=== PATIENT | female | born 1980 | race Caucasian/White ===

== ENCOUNTER 2016-11-26 11:49 | Emergency (ER) | payer BC, OTHER ==
[~2016-11-26 11:49] MED LIST: ACET50TA PO; IBUP80TA PO; VITAPRTA PO
[2016-11-26] MEDS ORDERED: ONDANSETRON 4 MG ORAL DISINTEGRATING TAB (S0181) As Ordered ONE (12:23)
--- NOTE | 2016-11-26 13:00 | REP ---
Chest x-ray: Two views. History: Cough . Comparison study: No comparison study . Findings: The lungs are well inflated and free of infiltrate. The pleural angles are sharp. The heart size is normal. Pulmonary vasculature is not increased. No significant bony abnormality is seen. Impression: Negative chest x-ray. Signed by Robbie Lock MD 11/26/2016 12:51 P
--- NOTE | 2016-11-26 13:17 | EDDOCDS ---
Nurse's Notes [facility] Name: Miguel Sheth Age: 36 yrs Sex: Female : 1980 Arrival Date: 11/26/2016 Time: 11:49 Bed I8 / 16 Private MD: NO PRIMARY PHYSICIAN, . Diagnosis: Acute upper respiratory infection, unspecified;Nausea and vomiting Presentation: 11/26 11:56 Presenting complaint: Patient states: Cough and congestion with sinus pressure for jo3 several days. Pt says that anything she drinks "comes back up" but is drinking an energy drink at the desk. Adult Sepsis Screening: Patient's respiratory rate is less than 22. Systolic blood pressure is greater than 100. Patient has a qSOFA score of 0- Negative Sepsis Screen. Suicide/Homicide risk assessment- the patient denies having any suicidal and/or homicidal ideations and does not present with any other emotional, behavioral or mental health complaints. 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 Transition of care: patient was not received from another setting of care. 11:56 Acuity: KACY Level 4 jo3 11:56 Method Of Arrival: Walkin/Carried/Asstd jo3 Triage Assessment: 11:59 General: Appears in no apparent distress, comfortable, Behavior is appropriate for age, jo3 cooperative, pleasant. HIV screening NA for this visit Offered previously. Neurological: Level of Consciousness is awake, alert, Oriented to person, place, time. Respiratory: Airway is patent Respiratory effort is even, unlabored. 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 Ventolin HFA 90 mcg/actuation Nebulizer HFAA 1 puff every 4 hours - PMHx: Asthma; - PSHx: Adenoidectomy; - Social history: Smoking status: Patient states former smoker of tobacco. No barriers to communication noted, The patient speaks fluent Kinyarwanda, Speaks appropriately for age. - Family history: Not pertinent. - : The pt / caregiver states he / she is not on anticoagulants. Home medication list is obtained from the patient. - Exposure Risk Screening:: None identified. Screenin:36 Screening information is obtained from the patient. Fall risk: No risks identified. mcp Assistance ADL's: requires no assistance with activities of daily living. Abuse/DV Screen: The patient / caregiver reports he/she is: not in a situation that causes fear, pain or injury. Nutritional screening: No deficits noted. Advance Directives: There is no active DNR order. home support is adequate. Assessment: 12:36 General: Appears in no apparent distress, Behavior is cooperative. Pain: Location: face mcp Pain currently is 4 out of 10 on a pain scale. Neurological: No deficits noted. EENT: Reports nasal congestion. Respiratory: Airway is patent Respiratory effort is even, unlabored. Derm: Skin is pink, warm & dry. 13:15 General: Tolerated fluids po. [facility] Vital Signs: 11:50 BP 131 / 78; Pulse 99; Resp 18; Temp 98.6(O); Pulse Ox 99% on R/A; Weight 77.11 kg (R); elp Height 5 ft. 3 in. (160.02 cm) (R); Pain 6/10; 13:14 BP 118 / 75; Pulse 89; Resp 18; Temp 98.7(O); Pulse Ox 99% on R/A; Pain 0/10; jml1 11:50 Body Mass Index 30.11 (77.11 kg, 160.02 cm) [facility] Vitals: 11:50 Log In Time: November 26, 2016 at 11:48. [facility] ED Course: 11:49 Patient visited by Maria Isabel Torres PCA. elp 11:49 Patient moved to Waiting elp 11:50 NO PRIMARY PHYSICIAN, . is Private Physician. elp 11:51 Patient visited by Maria Isabel Torres PCA. elp 11:51 Patient moved to Pre RCE elp 11:57 Triage Initiated jo3 12:00 Patient visited by Rosalee Owen RN. jo3 12:00 Jad Araya MD is Attending Physician. br1 12:00 Patient moved to I ck1 12:15 Patient visited by Jad Araya MD. br1 12:37 Patient visited by Silvia Luu RN. [facility] 12:37 The patient / caregiver is instructed regarding the plan of care and ED course. Patient mcp has correct armband on for positive identification. Bed in low position. Call light in reach. Adult w/ patient. 12:37 No IV's were initiated during this patient's visit. No procedures done that require mcp assistance. 12:56 Patient visited by Jad Araya MD. br1 13:05 [facility] is Referral Physician. br1 13:15 Patient visited by Dominick Pratt. robin Administered Medications: 12:34 Drug: Ondansetron ODT 4 mg [ondansetron 4 mg disintegrating tablet (1 tabs)] Route: PO; mcp Order Results: Lab Order: -Influenza A&B Rapid Antigen - Nose; SPEC'M 11/26/16 12:28 Test: INFLUENZA A RAPID SCR by ICA; Value: INFLUENZA A RESULTS NEGATIVE; Status: F Test: INFLUENZA A RAPID SCR by ICA; Value: Comments:; Status: F Test: INFLUENZA B RAPID SCR by ICA; Value: INFLUENZA B RESULTS NEGATIVE; Status: F Test Note: ; The Influenza test is a direct rapid immunoassay for the qualitative detection of Influenza viral antigen. Cell culture (Viral Culture) testing should be considered to confirm NEGATIVE results and to assist in detecting other viruses that can provide similar clinical symptoms. Please contact the lab within 24 hours ([phone]) if confirmatory testing is desired. Outcome: 13:06 Discharge ordered by Provider. br1 13:15 Discharge Assessment: patient administered narcotics - no. The following High Risk [facility] Discharge criteria are identified: None. Discharged to home ambulatory, with friend. Condition: stable. Discharge instructions given to patient, Instructed on discharge instructions, follow up and referral plans. medication usage, diet, Demonstrated understanding of instructions, medications, Pt was receptive of discharge instructions/ teaching. Prescriptions given X 1. No special radiology studies were completed. Property sent home with patient. 13:16 Patient left the ED. [facility] Signatures: Silvia Luu RN RN mcp Kim-Ashcraft, ConnieRN RN ck1 Rosalee Owen RN RN jo3 Jad Araya MD MD br1 Dominick Pratt jml1 Maria Isabel Torres, PIPELINES SUPERINTENDENT PIPELINES SUPERINTENDENT elp Corrections: (The following items were deleted from the chart) 11:58 11:56 Presenting complaint: Patient states: Cough and congestion with sinus pressure jo3 for several days jo3 11:58 11:56 Adult Sepsis Screening: Patient's respiratory rate is less than 22. Systolic jo3 blood pressure is greater than 100. Patient has a qSOFA score of 0- Negative Sepsis Screen. jo3 MTDD
--- NOTE | 2016-11-26 13:17 | EDDOCDS ---
Physician Documentation [facility] Name: Miguel Sheth Age: 36 yrs Sex: Female : 1980 Arrival Date: 11/26/2016 Time: 11:49 Bed I8 / 16 Private MD: NO PRIMARY PHYSICIAN, . Disposition: 11/26/16 13:06 Discharged to Home/Self Care. Impression: Acute upper respiratory infection, unspecified, Nausea and vomiting. - Condition is Stable. - Discharge Instructions: Nausea and Vomiting, Upper Respiratory Infection, Adult. - Prescriptions for ZOFRAN ODT 4 mg - dissolve 1 tablet by ORAL route 4 times per day As needed do not chew, do not swallow whole; 10 tablet. - Medication Reconciliation, Local Pharmacy Hours form. - [facility] up: [facility]; When: 2 - 3 days; Reason: Recheck today's complaints. - Problem is new. - Symptoms have improved. - Notes: You were seen in the ED for chills, aches, nausea, vomiting, and diarrhea concerning for viral syndrome. Strep and Flu swabs are negative. Chest Xray was clear as well. Continue Tylenol and Ibuprofen as needed for pain and fever. Encourage plenty of clear liquids (use Zofran as needed for nausea) and then advance your diet as tolerated. Call your primary doctor to arrange to be seen for recheck (if you have no doctor please call the [facility] to arrange to be seen). Return to the ED for any uncontrolled fever, abdominal pain, trouble breathing, or any other concerns. Historical: - Allergies: Sulfa (Sulfonamide Antibiotics); - Home Meds: 1. Ventolin HFA 90 mcg/actuation Nebulizer HFAA 1 puff every 4 hours - PMHx: Asthma; - PSHx: Adenoidectomy; - Social history: Smoking status: Patient states former smoker of tobacco. No barriers to communication noted, The patient speaks fluent Swedish, Speaks appropriately for age. - Family history: Not pertinent. - : The pt / caregiver states he / she is not on anticoagulants. Home medication list is obtained from the patient. - Exposure Risk Screening:: None identified. 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 3 in. (160.02 cm) (R); Pain 6/10; 13:14 BP 118 / 75; Pulse 89; Resp 18; Temp 98.7(O); Pulse Ox 99% on R/A; Pain 0/10; jml1 11:50 Body Mass Index 30.11 (77.11 kg, 160.02 cm) elp MDM: 12:16 Strep Screen, Nursing ordered. br1 12:16 Ondansetron ODT Oral Disintegrating Tablet 4 mg PO once ordered. br1 12:16 Fluid Challenge ordered. br1 12:18 -Influenza A&B Rapid Antigen - Nose Ordered. EDMS 12:18 Chest, 2 View (pa\E\lat) Ordered. EDMS 12:36 GATS (NEGATIVE STREP SCREEN) Ordered. EDMS 12:55 -Influenza A&B Rapid Antigen - Nose Reviewed. br1 Administered Medications: 12:34 Drug: Ondansetron ODT 4 mg [ondansetron 4 mg disintegrating tablet (1 tabs)] Route: PO; [facility] Signatures: Dispatcher [employer] Silvia Carrillo RN RN mcp Helmerci, Jennifer, RN RN jo3 Roggie, Brian, MD MD br1 MTDD
--- NOTE | 2016-11-28 14:17 | EDDOCDS ---
Nurse's Notes [facility] Name: Miguel Sheth Age: 36 yrs Sex: Female : 1980 Arrival Date: 11/26/2016 Time: 11:49 Bed I8 / 16 Private MD: NO PRIMARY PHYSICIAN, . Diagnosis: Acute upper respiratory infection, unspecified;Nausea and vomiting Presentation: 11/26 11:56 Presenting complaint: Patient states: Cough and congestion with sinus pressure for jo3 several days. Pt says that anything she drinks "comes back up" but is drinking an energy drink at the desk. Adult Sepsis Screening: Patient's respiratory rate is less than 22. Systolic blood pressure is greater than 100. Patient has a qSOFA score of 0- Negative Sepsis Screen. Suicide/Homicide risk assessment- the patient denies having any suicidal and/or homicidal ideations and does not present with any other emotional, behavioral or mental health complaints. 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 Transition of care: patient was not received from another setting of care. 11:56 Acuity: KACY Level 4 jo3 11:56 Method Of Arrival: Walkin/Carried/Asstd jo3 Triage Assessment: 11:59 General: Appears in no apparent distress, comfortable, Behavior is appropriate for age, jo3 cooperative, pleasant. HIV screening NA for this visit Offered previously. Neurological: Level of Consciousness is awake, alert, Oriented to person, place, time. Respiratory: Airway is patent Respiratory effort is even, unlabored. 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 Ventolin HFA 90 mcg/actuation Nebulizer HFAA 1 puff every 4 hours - PMHx: Asthma; - PSHx: Adenoidectomy; - Social history: Smoking status: Patient states former smoker of tobacco. No barriers to communication noted, The patient speaks fluent Albanian, Speaks appropriately for age. - Family history: Not pertinent. - : The pt / caregiver states he / she is not on anticoagulants. Home medication list is obtained from the patient. - Exposure Risk Screening:: None identified. Screenin:36 Screening information is obtained from the patient. Fall risk: No risks identified. mcp Assistance ADL's: requires no assistance with activities of daily living. Abuse/DV Screen: The patient / caregiver reports he/she is: not in a situation that causes fear, pain or injury. Nutritional screening: No deficits noted. Advance Directives: There is no active DNR order. home support is adequate. Assessment: 12:36 General: Appears in no apparent distress, Behavior is cooperative. Pain: Location: face mcp Pain currently is 4 out of 10 on a pain scale. Neurological: No deficits noted. EENT: Reports nasal congestion. Respiratory: Airway is patent Respiratory effort is even, unlabored. Derm: Skin is pink, warm & dry. 13:15 General: Tolerated fluids po. [facility] Vital Signs: 11:50 BP 131 / 78; Pulse 99; Resp 18; Temp 98.6(O); Pulse Ox 99% on R/A; Weight 77.11 kg (R); elp Height 5 ft. 3 in. (160.02 cm) (R); Pain 6/10; 13:14 BP 118 / 75; Pulse 89; Resp 18; Temp 98.7(O); Pulse Ox 99% on R/A; Pain 0/10; jml1 11:50 Body Mass Index 30.11 (77.11 kg, 160.02 cm) [facility] Vitals: 11:50 Log In Time: November 26, 2016 at 11:48. [facility] ED Course: 11:49 Patient visited by Maria Isabel Torres PCA. elp 11:49 Patient moved to Waiting elp 11:50 NO PRIMARY PHYSICIAN, . is Private Physician. elp 11:51 Patient visited by Maria Isabel Torres PCA. elp 11:51 Patient moved to Pre RCE elp 11:57 Triage Initiated jo3 12:00 Patient visited by Rosalee Owen RN. jo3 12:00 Jad Araya MD is Attending Physician. br1 12:00 Patient moved to I ck1 12:15 Patient visited by Jad Araya MD. br1 12:37 Patient visited by Silvia Luu RN. [facility] 12:37 The patient / caregiver is instructed regarding the plan of care and ED course. Patient mcp has correct armband on for positive identification. Bed in low position. Call light in reach. Adult w/ patient. 12:37 No IV's were initiated during this patient's visit. No procedures done that require mcp assistance. 12:56 Patient visited by Jad Araya MD. br1 13:05 [facility] is Referral Physician. br1 13:15 Patient visited by Dominick Pratt. jml1 13:19 Chest, 2 View (pa\\E\\lat) Returned. EDMS 13:25 [facility] Agreement was scanned into [employer] and attached to record. mm15 11/27 11:01 T-Sheet-- Draft Copy was scanned into [employer] and attached to record. gb 11:02 Radiology Report was scanned into [employer] and attached to record. gb Administered Medications: 11/26 12:34 Drug: Ondansetron ODT 4 mg [ondansetron 4 mg disintegrating tablet (1 tabs)] Route: PO; mcp Order Results: Lab Order: -Influenza A&B Rapid Antigen - Nose; SPEC'M 11/26/16 12:28 Test: INFLUENZA A RAPID SCR by ICA; Value: INFLUENZA A RESULTS NEGATIVE; Status: F Test: INFLUENZA A RAPID SCR by ICA; Value: Comments:; Status: F Test: INFLUENZA B RAPID SCR by ICA; Value: INFLUENZA B RESULTS NEGATIVE; Status: F Test Note: ; The Influenza test is a direct rapid immunoassay for the qualitative detection of Influenza viral antigen. Cell culture (Viral Culture) testing should be considered to confirm NEGATIVE results and to assist in detecting other viruses that can provide similar clinical symptoms. Please contact the lab within 24 hours ([phone]) if confirmatory testing is desired. Lab Order: GATS (NEGATIVE STREP SCREEN); SPEC'M 11/26/16 12:28 Test: GATS CULTURE (NEG STREP SCR); Value: GATS RESULT NEGATIVE FOR STREP PYOGENES (GROUP A); Status: F Test: GATS CULTURE (NEG STREP SCR); Value: <EXTERNAL COMMENT eCWMed> FULL REPORT IN LAB NOTES (eCW and Medent).; Status: F Radiology Order: Chest, 2 View (pa\\E\\lat) Test: Chest, 2 View (pa\\E\\lat) REASON FOR EXAMINATION: Cough; Chest x-ray: Two views.; ; History: Cough .; ; Comparison study: No comparison study .; ; Findings: The lungs are well inflated and free of infiltrate. The pleural; angles are sharp. The heart size is normal. Pulmonary vasculature is not; increased. No significant bony abnormality is seen.; ; Impression:; ; Negative chest x-ray.; ; ; Signed by; Robbie Lock MD 11/26/2016 12:51 P; Outcome: 13:06 Discharge ordered by Provider. br1 13:15 Discharge Assessment: patient administered narcotics - no. The following High Risk [facility] Discharge criteria are identified: None. Discharged to home ambulatory, with friend. Condition: stable. Discharge instructions given to patient, Instructed on discharge instructions, follow up and referral plans. medication usage, diet, Demonstrated understanding of instructions, medications, Pt was receptive of discharge instructions/ teaching. Prescriptions given X 1. No special radiology studies were completed. Property sent home with patient. 13:16 Patient left the ED. [facility] Signatures: Dispatcher [employer] EDMS Silvia Luu RN RN [facility] Dinah Mayes, Reg Reg Ligia Garcia RN RN ck1 Rosalee Owen RN RN jo3 Jad Araya MD MD br1 Dominick Pratt jml1 Bridget Salmon mm15 Maria Isabel Torres, ELSIE CHAR BELT OPERATOR elp Corrections: (The following items were deleted from the chart) 11:58 11:56 Presenting complaint: Patient states: Cough and congestion with sinus pressure jo3 for several days jo3 11:58 11:56 Adult Sepsis Screening: Patient's respiratory rate is less than 22. Systolic jo3 blood pressure is greater than 100. Patient has a qSOFA score of 0- Negative Sepsis Screen. jo3 Chart Complete MTDD
--- NOTE | 2016-11-28 14:17 | EDDOCDS ---
Physician Documentation [facility] Name: Miguel Sheth Age: 36 yrs Sex: Female : 1980 Arrival Date: 11/26/2016 Time: 11:49 Bed I8 / 16 Private MD: NO PRIMARY PHYSICIAN, . Disposition: 11/26/16 13:06 Discharged to Home/Self Care. Impression: Acute upper respiratory infection, unspecified, Nausea and vomiting. - Condition is Stable. - Discharge Instructions: Nausea and Vomiting, Upper Respiratory Infection, Adult. - Prescriptions for ZOFRAN ODT 4 mg - dissolve 1 tablet by ORAL route 4 times per day As needed do not chew, do not swallow whole; 10 tablet. - Medication Reconciliation, Local Pharmacy Hours form. - Follow up: [facility]; When: 2 - 3 days; Reason: Recheck today's complaints. - Problem is new. - Symptoms have improved. - Notes: You were seen in the ED for chills, aches, nausea, vomiting, and diarrhea concerning for viral syndrome. Strep and Flu swabs are negative. Chest Xray was clear as well. Continue Tylenol and Ibuprofen as needed for pain and fever. Encourage plenty of clear liquids (use Zofran as needed for nausea) and then advance your diet as tolerated. Call your primary doctor to arrange to be seen for recheck (if you have no doctor please call the [facility] to arrange to be seen). Return to the ED for any uncontrolled fever, abdominal pain, trouble breathing, or any other concerns. Historical: - Allergies: Sulfa (Sulfonamide Antibiotics); - Home Meds: 1. Ventolin HFA 90 mcg/actuation Nebulizer HFAA 1 puff every 4 hours - PMHx: Asthma; - PSHx: Adenoidectomy; - Social history: Smoking status: Patient states former smoker of tobacco. No barriers to communication noted, The patient speaks fluent South Sudanese, Speaks appropriately for age. - Family history: Not pertinent. - : The pt / caregiver states he / she is not on anticoagulants. Home medication list is obtained from the patient. - Exposure Risk Screening:: None identified. 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 3 in. (160.02 cm) (R); Pain 6/10; 13:14 BP 118 / 75; Pulse 89; Resp 18; Temp 98.7(O); Pulse Ox 99% on R/A; Pain 0/10; jml1 11:50 Body Mass Index 30.11 (77.11 kg, 160.02 cm) elp MDM: 12:16 Strep Screen, Nursing ordered. br1 12:16 Ondansetron ODT Oral Disintegrating Tablet 4 mg PO once ordered. br1 12:16 Fluid Challenge ordered. br1 12:18 -Influenza A&B Rapid Antigen - Nose Ordered. EDMS 12:18 Chest, 2 View (pa\E\lat) Ordered. EDMS 12:36 GATS (NEGATIVE STREP SCREEN) Ordered. EDMS 12:55 -Influenza A&B Rapid Antigen - Nose Reviewed. br1 13:24 Financial registration complete. 15 13:25 [facility] Payment Agreement was scanned into [employer] and attached to record. mm15 11/27 11:01 T-Sheet-- Draft Copy was scanned into [employer] and attached to record. 11:02 Radiology Report was scanned into [employer] and attached to record. gb Administered Medications: 11/26 12:34 Drug: Ondansetron ODT 4 mg [ondansetron 4 mg disintegrating tablet (1 tabs)] Route: PO; [facility] Signatures: Dispatcher [employer] EDMS Silvia Luu RN RN mcp Barnhardt, Gloria, Reg Reg Rosalee Rodriguez RN RN jo3 Jad Araya MD MD br1 Bridget Salmon mm15 The chart was reviewed and I authenticate all verbal orders and agree with the evaluation and treatment provided.Attachments: 13:25 [facility] Payment Agreement mm15 11/27 11:01 T-Sheet-- Draft Copy Chart Complete MTDD
--- NOTE | 2016-11-28 14:17 | EDDOCDS ---
Physician Documentation [facility] Name: Miguel Sheth Age: 36 yrs Sex: Female : 1980 Arrival Date: 11/26/2016 Time: 11:49 Bed I8 / 16 Private MD: NO PRIMARY PHYSICIAN, . Disposition: 11/26/16 13:06 Discharged to Home/Self Care. Impression: Acute upper respiratory infection, unspecified, Nausea and vomiting. - Condition is Stable. - Discharge Instructions: Nausea and Vomiting, Upper Respiratory Infection, Adult. - Prescriptions for ZOFRAN ODT 4 mg - dissolve 1 tablet by ORAL route 4 times per day As needed do not chew, do not swallow whole; 10 tablet. - Medication Reconciliation, Local Pharmacy Hours form. - [facility]: [facility]; When: 2 - 3 days; Reason: Recheck today's complaints. - Problem is new. - Symptoms have improved. - Notes: You were seen in the ED for chills, aches, nausea, vomiting, and diarrhea concerning for viral syndrome. Strep and Flu swabs are negative. Chest Xray was clear as well. Continue Tylenol and Ibuprofen as needed for pain and fever. Encourage plenty of clear liquids (use Zofran as needed for nausea) and then advance your diet as tolerated. Call your primary doctor to arrange to be seen for recheck (if you have no doctor please call the [facility] to arrange to be seen). Return to the ED for any uncontrolled fever, abdominal pain, trouble breathing, or any other concerns. Historical: - Allergies: Sulfa (Sulfonamide Antibiotics); - Home Meds: 1. Ventolin HFA 90 mcg/actuation Nebulizer HFAA 1 puff every 4 hours - PMHx: Asthma; - PSHx: Adenoidectomy; - Social history: Smoking status: Patient states former smoker of tobacco. No barriers to communication noted, The patient speaks fluent [place], Speaks appropriately for age. - Family history: Not pertinent. - : The pt / caregiver states he / she is not on anticoagulants. Home medication list is obtained from the patient. - Exposure Risk Screening:: None identified. 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 3 in. (160.02 cm) (R); Pain 6/10; 13:14 BP 118 / 75; Pulse 89; Resp 18; Temp 98.7(O); Pulse Ox 99% on R/A; Pain 0/10; jml1 11:50 Body Mass Index 30.11 (77.11 kg, 160.02 cm) elp MDM: 12:16 Strep Screen, Nursing ordered. br1 12:16 Ondansetron ODT Oral Disintegrating Tablet 4 mg PO once ordered. br1 12:16 Fluid Challenge ordered. br1 12:18 -Influenza A&B Rapid Antigen - Nose Ordered. EDMS 12:18 Chest, 2 View (pa\E\lat) Ordered. EDMS 12:36 GATS (NEGATIVE STREP SCREEN) Ordered. EDMS 12:55 -Influenza A&B Rapid Antigen - Nose Reviewed. br1 13:24 Financial registration complete. 15 13:25 [facility] Payment Agreement was scanned into [employer] and attached to record. mm15 11/27 11:01 T-Sheet-- Draft Copy was scanned into [employer] and attached to record. 11:02 Radiology Report was scanned into [employer] and attached to record. gb Administered Medications: 11/26 12:34 Drug: Ondansetron ODT 4 mg [ondansetron 4 mg disintegrating tablet (1 tabs)] Route: PO; grecia Signatures: Dispatcher [employer] EDMS Silvia Luu RN RN mcp Barnhardt, Gloria, Reg Reg Rosalee Rodriguez RN RN jo3 Jad Araya MD MD br1 Bridget Salmon mm15 The chart was reviewed and I authenticate all verbal orders and agree with the evaluation and treatment provided.Attachments: 13:25 [facility] Payment Agreement mm15 11/27 11:01 T-Sheet-- Draft Copy Chart Complete MTDD
== END 2016-11-26 13:16 | disposition home or self-care (01) ==
LOC: M ED 11:49
DX: J06.9 Acute upper respiratory infection, unspecified (principal); R11.2 Nausea with vomiting, unspecified; J45.909 Unspecified asthma, uncomplicated; Z87.891 Personal history of nicotine dependence; Z88.2 Allergy status to sulfonamides

== ENCOUNTER → 2019-11-27 | Outpatient (CLI) | payer BC ==
[~2019-11-27] MED LIST changes: -ACET50TA PO; +MAPA500T2 PO
--- NOTE | 2019-11-27 09:51 | REP ---
BILATERAL SCREENING DIGITAL MAMMOGRAM WITH 3D TOMOSYNTHESIS: There are no palpable abnormalities or other breast complaints. The the patient states she had a clinical breast examination October,. The the the The the patient states she performs self-breast examinations 12 times per year. The Tyrer Cuzick Lifetime Breast Cancer Risk Score is: 45.3% . There are no comparison studies. This is a baseline examination. The breasts are heterogeneously dense, which could obscure small masses. There is no dominant mass, micro calcific cluster or architectural distortion that would indicate malignancy. There are no additional findings on 3D tomosynthesiss. There is no change from the prior study. Impression: BIRADS/ACR category 1 mammogram. Negative. Recommendation: Routine annual screening mammography. Because of the increased breast density, annual adjunctive breast MRI in addition to screening mammography is recommended. These can be performed at alternating six month intervals. For women with a Tyrer-Cuzick score greater than 20 , adjunctive annual breast MRI in addition to screening mammography is recommended. These can be performed at alternating six month intervals. This mammogram was interpreted with the aid of a FDA approved computer-aided detection system. A. Negative mammogram reports should not delay biopsy if a dominant or clinically suspicious mass is present. B. Not all breast cancers are identified by mammography or tomosynthesis. C. Adenosis and dense breasts may obscure an underlying neoplasm. Patient letter M1 dense breasts. Electronically Signed by Shimon Armstrong MD 11/27/2019 09:43 A
== END ==
LOC: M WHC 08:31
PROVIDERS: ATTEND Obstetrics & Gynecology
DX: Z12.31 Encounter for screening mammogram for malignant neoplasm of breast (principal)

== ENCOUNTER → 2020-07-30 | Outpatient (REF) | payer BC ==
[2020-07-30 15:40] LABS: HEMATOCRIT 45.7 % (36.0-47.0); HEMOGLOBIN 15.3 g/dl (12.0-15.5); MEAN CORPUSCULAR HEMOGLOBIN 31.9 pg (27.0-33.0); MEAN CORPUSCULAR HGB CONC 33.5 g/dl (32.0-36.5); MEAN CORPUSCULAR VOLUME 95.4 fl (80.0-96.0); PLATELET COUNT, AUTOMATED 319 10^3/uL (150-450); RED BLOOD COUNT 4.79 10^6/uL (4.00-5.40); WHITE BLOOD COUNT 10.8 10^3/uL (4.0-10.0)
[2020-07-30 16:19] LABS: ALBUMIN 4.3 GM/DL (3.2-5.2); ALT/SGPT 22 U/L (12-78); BILIRUBIN,TOTAL 0.6 MG/DL (0.2-1.0); BLOOD UREA NITROGEN 17 MG/DL (7-18); CALCIUM LEVEL 9.4 MG/DL (8.5-10.1); CARBON DIOXIDE LEVEL 29 MEQ/L (21-32); CHLORIDE LEVEL 104 MEQ/L (98-107); CHOLESTEROL LEVEL 157 MG/DL (<200); CHOLESTEROL RISK RATIO 3.413 (<5); CREATININE FOR GFR 0.88 MG/DL (0.55-1.30); FREE T4 1.08 NG/DL (0.76-1.46); GLOMERULAR FILTRATION RATE > 60.0 (>60); GLUCOSE, FASTING 80 MG/DL (70-100); HDL CHOLESTEROL 46 MG/DL (>40); LDL CHOLESTEROL 92 MG/DL (<100); NON-HDL-C 111 MG/DL; POTASSIUM SERUM 4.2 MEQ/L (3.5-5.1); SODIUM LEVEL 138 MEQ/L (136-145); TOTAL PROTEIN 7.7 GM/DL (6.4-8.2); TRIGLYCERIDES LEVEL 94 MG/DL (<150)
[2020-07-30 16:23] LABS: TOTAL 25(OH) VITAMIN D 35.3 NG/ML (30.0-100.0)
== END ==
LOC: M SFHCPLAZ 12:35
PROVIDERS: ATTEND Physician Assistant
DX: Z00.00 Encounter for general adult medical examination without abnormal findings (principal); Z13.29 Encounter for screening for other suspected endocrine disorder; Z13.220 Encounter for screening for lipoid disorders; R53.83 Other fatigue; J45.40 Moderate persistent asthma, uncomplicated

== ENCOUNTER → 2020-12-10 | Outpatient (CLI) | payer BC ==
--- NOTE | 2020-12-10 12:55 | REPMRS ---
Patient History The patient states she had a clinical breast exam in 11/2020 Family history of breast cancer under age 50 in mother, ovarian cancer at age 67 in maternal grandmother. No Hormone Replacement Therapy Digital Woman Screen Mammo: December 10, 2020 - Exam #: [id number] Bilateral CC and MLO view(s) were taken. Technologist: Shante Chaves, Technologist Prior study comparison: November 27, 2019, bilateral digital woman screen mammo performed at [facility]. FINDINGS: There are scattered fibroglandular densities. The Volpara volumetric breast density category is:B. There has been no change in the appearance of the mammogram from the prior studies. There is a mild amount of scattered fibroglandular density which is fairly symmetric. There is no interval development of dominant mass, architectural distortion, or grouped microcalcification suggestive of malignancy. 3-D tomosynthesis shows no additional findings. Assessment: BI-RADS/ACR category 1 mammogram. Negative Mammogram. Recommendation Breast MRI of both breasts in 6 months. Routine screening mammogram of both breasts in 1 year (for women over age 40). This patient's [facility] Lifetime Breast Cancer Risk is estimated at 44.5 %. Annual screening Breast MRI scanniing is recommended for patient's whose lifetime risk assessment is over 20%. This mammogram was interpreted with the aid of an FDA-approved computer-aided dectection system. Electronically Signed By: Stevie Lock MD 12/10/20 [id number]
== END ==
LOC: M WHC 11:14
PROVIDERS: ATTEND Obstetrics & Gynecology
DX: Z12.31 Encounter for screening mammogram for malignant neoplasm of breast (principal)

== ENCOUNTER → 2021-02-25 | Outpatient (REF) | LOC: M LAB 15:32 | PROVIDERS: ATTEND Nurse Practitioner Adult Health | DX: Z02.89 Encounter for other administrative examinations (principal) ==

== ENCOUNTER → 2021-06-11 | Outpatient (REF) | LOC: M LABSMTC 13:53 | PROVIDERS: ATTEND Pediatrics | DX: Z20.822 Contact with and (suspected) exposure to COVID-19 (principal) ==

== ENCOUNTER → 2022-04-24 | Outpatient (CLI) | payer BC | LOC: M WHC 10:59 | PROVIDERS: ATTEND Obstetrics & Gynecology | DX: Z12.31 Encounter for screening mammogram for malignant neoplasm of breast (principal) ==

== ENCOUNTER → 2023-05-21 | Outpatient (CLI) | payer BC | LOC: M WHC 08:51 | PROVIDERS: ATTEND Obstetrics & Gynecology | DX: Z12.31 Encounter for screening mammogram for malignant neoplasm of breast (principal) ==

== ENCOUNTER 2024-08-29 17:18 | Emergency (ER) | payer BC ==
[~2024-08-29] VITALS: Ht 160 cm; Wt 86.6 kg
[2024-08-29 17:23] VITALS: BP 148/78; TEMP 97.2; O2SAT 94
[2024-08-29] MEDS ORDERED: FLUTICASONE (17:29)
[2024-08-29] MEDS: ACETAMINOPHEN 500 MG TAB PO ONE (20:22)
[2024-08-29] MEDS: LIDOCAINE 5% (LIDODERM) PATCH TD ONE (20:23)
[2024-08-29] MEDS: KETOROLAC 30 MG/ML 1ML VIAL IM ONE (20:23)
[2024-08-29] MEDS ORDERED: METH-1165 PO (21:07)
[2024-08-29] MEDS ORDERED: MEDR4PAK PO (21:07)
[2024-08-29] MEDS ORDERED: ASPE4PAD TOP (21:08)
== END 2024-08-29 21:21 | disposition home or self-care (01) ==
LOC: M ED 17:18
DX: S39.012A Strain of muscle, fascia and tendon of lower back, initial encounter (principal); X58.XXXA Exposure to other specified factors, initial encounter; Y92.009 Unspecified place in unspecified non-institutional (private) residence as the place of occurrence of the external cause; Y93.9 Activity, unspecified; Y99.9 Unspecified external cause status; J45.909 Unspecified asthma, uncomplicated; K42.0 Umbilical hernia with obstruction, without gangrene; Z88.2 Allergy status to sulfonamides
CPT/HCPCS: 81001; 87086; 96372; 99283; J1885

== ENCOUNTER → 2024-09-15 | Outpatient (CLI) | payer BC ==
[~2024-09-15] MED LIST changes: +ASPE4PAD TOP; +FLUTICASONE; +MEDR4PAK PO; +METH-1165 PO
== END ==
LOC: M WHC 08:10
PROVIDERS: ATTEND Obstetrics & Gynecology
DX: Z12.31 Encounter for screening mammogram for malignant neoplasm of breast (principal); R92.333 Mammographic heterogeneous density, bilateral breasts